=== PATIENT | female | born 1930 | race Caucasian/White ===

== ENCOUNTER 2019-04-21 16:03 | Inpatient (IN) | payer OTHER, MEDICAID ==
[~2019-04-21] VITALS: Ht 160 cm; Wt 63.0 kg
[2019-04-21 16:15] VITALS: BP_SYST 136
--- NOTE | 2019-04-21 16:28 | NUR ---
Patient to ER bed 05 to gown for evaluation. Side rails up.
--- NOTE | 2019-04-21 16:35 | NUR ---
[facility] PT was combative towards the staff and is her for medical clearnace to [place]
--- NOTE | 2019-04-21 16:41 | NUR ---
ER at bedside examining patient.
[2019-04-21 17:13] LABS: BASOPHILS # (AUTO) 0.1 K/uL (0.0-0.2); BASOPHILS % (AUTO) 0.4 % (0.0-2.0); EOSINOPHILS % (AUTO) 0.1 % (0.0-4.0); HEMATOCRIT 49.9 % (36-48); HEMOGLOBIN 16.8 g/dL (12.0-16.0); LYMPHOCYTES # (AUTO) 1.9 K/uL (1.0-5.5); LYMPHOCYTES % (AUTO) 12.9 % (20.5-51.5); MEAN CORPUSCULAR HEMOGLOBIN 30 pg (27-31); MEAN CORPUSCULAR HGB CONC 34 % (32-36); MEAN CORPUSCULAR VOLUME 89 fL (79.0-98.0); MONOCYTES % (AUTO) 6.9 % (1.7-9.3); NEUTROPHILS # (AUTO) 11.8 K/uL (1.8-7.7); NEUTROPHILS % (AUTO) 79.7 % (40.0-70.0); PLATELET COUNT (AUTO) 253 K/uL (130-430); RED BLOOD CELL COUNT(AUTO) 5.58 MIL/uL (4.2-6.2); RED CELL DISTRIBUTION WIDTH 14.9 % (9.0-15.0); WHITE BLOOD COUNT (AUTO) 14.8 K/uL (4.8-10.8)
[2019-04-21 17:28] LABS: ANION GAP 12 (5-15); CALCIUM 9.6 mg/dL (8.4-11.0); CHLORIDE 107 mmol/L (98-107); CREATININE 1.07 mg/dL (0.55-1.30); GLUCOSE 103 mg/dL (70-99); POTASSIUM 4.2 mmol/L (3.5-5.1); SODIUM SERUM 143 mmol/L (136-145); UREA NITROGEN, BLOOD 14 mg/dL (8-21)
[2019-04-21 17:34] LABS: INR 1.1 (0.8-1.2); PROTHROMBIN TIME 10.9 SECS (9.5-12.5)
[2019-04-21 17:39] LABS: ALANINE AMINOTRANSFERASE 20 U/L (12-78); ALBUMIN 3.8 g/dL (3.4-4.8); ASPARTATE AMINOTRANSFERASE 28 U/L (10-37); FREE T4 (FREE THYROXINE) 0.9 ng/dl (0.8-1.5); TOTAL BILIRUBIN 0.5 mg/dL (0.0-1.0)
[2019-04-21 17:40] LABS: ALCOHOL, BLOOD < 3 mg/dL (<10)
--- NOTE | 2019-04-21 17:50 | NUR ---
pt will be admitted to the unit for troponin of 0.059
[2019-04-21] MEDS ORDERED: ASPIRIN 81 MG TAB.CHEW PO ONE (18:15)
[2019-04-21] MEDS ORDERED: PIPERACILLIN/TAZO 3.375 GM in NS 50 ML IV ONE (18:15)
[2019-04-21 18:16] LABS: BILIRUBIN,URINE NEGATIVE (NEGATIVE); CLARITY/URINE CLOUDY (CLEAR); COLOR,URINE YELLOW (YELLOW); GLUCOSE,URINE NEGATIVE (NEGATIVE); KETONES,URINE 1+ (NEGATIVE); LEUKOCYTE ESTERASE ,URINE 3+ (NEGATIVE); NITRITE, URINE POSITIVE (NEGATIVE); PROTEIN URINE TRACE (NEGATIVE); UROBILINOGEN,URINE 0.2 (0.2-1.0)
[2019-04-21 18:20] LABS: BLOOD, URINE TRACE (NEGATIVE)
[2019-04-21 18:27] LABS: BACTERIA,URINE MANY /HPF (None Seen); MUCUS,URINE None Seen /LPF (None Seen); WBC,URINE 80-100 /HPF (0-3)
--- NOTE | 2019-04-21 18:30 | NUR ---
# 20 gauge angiocath placed to RFA. Use of asceptic technique. Opsite placed over site. Blood return noted. Blood for lab drawn from site. Flushed with 10 cc of normal saline. No evidence of infiltration noted. Patient tolerated well.
[2019-04-21] MEDS ORDERED: DORZ1DRO5 OP (18:33)
[2019-04-21] MEDS ORDERED: MEMA10TA PO (18:33)
[2019-04-21] MEDS ORDERED: MULT-1089 PO (18:33)
[2019-04-21] MEDS ORDERED: REM15 PO (18:33)
[2019-04-21] MEDS ORDERED: DONE10TA44 PO (18:33)
[2019-04-21] MEDS ORDERED: ACET325T53 PO (18:33)
--- NOTE | 2019-04-21 18:34 | NUR ---
MEMedication reconciliation completed with information provided by [facility]. Any prior medication reconciliation on file was reviewed and corrected.
[2019-04-21 18:37] LABS: BARBITURATE, URINE NEGATIVE (NEG <=200); BENZODIAZEPINE, URINE NEGATIVE (NEG <=150); CANNABINOID, URINE NEGATIVE (NEG <=50); COCAINE, URINE NEGATIVE (NEG <=150); METHAMPHETAMINES SCREEN,URINE NEGATIVE (NEG <=500); OPIATE, URINE NEGATIVE (NEG <=100); PHENCYCLIDINE SCREEN,URINE NEGATIVE (NEG <=25); UR TRICYCLIC ANTIDEPRESSANTS NEGATIVE (NEG <=300); URINE AMPHETAMINE NEGATIVE (NEG <=500); URINE METHADONE NEGATIVE (NEG <=200); URINE OXYCODONE SCREEN NEGATIVE (NEG <=100); URINE PROPOXYPHENE SCREEN NEGATIVE (NEG <=300)
--- NOTE | 2019-04-21 18:54 | NUR ---
Patient will be admitted to [facility]. Admitted to tele unit. Will go to room 132-c. Belongings list completed. Summary report printed. Report will be given at bedside. IV intact and flushing
[2019-04-21 19:02] VITALS: BP_SYST 116
--- NOTE | 2019-04-21 19:02 | NUR ---
Admission Note Received patient from ER with diagnosis of Lactic Acidosis. Initial Plan of Care discussed-patient verbalized understanding. Oriented to room, call light, pain management and safety. Addendum: 04/22/19 at 0302 by Ziggy Grissom RN Vitals stable, no signs of acute respiratory distress observed.
[2019-04-21 20:00] VITALS: BP_SYST 116
[2019-04-21] MEDS ORDERED: ONDANSETRON HCL 4 MG/2 ML VIAL IVP PRN (21:00)
[2019-04-21] MEDS ORDERED: HYDROcodone/ACETAMIN 5-325 MG TAB (NORCO/ VICODIN) PO PRN (21:00)
[2019-04-21] MEDS ORDERED: HYDROcodone/ACETAMIN 10-325 MG TAB PO PRN (21:00)
[2019-04-21] MEDS: DORZOLAMIDE HCL/TIMOLOL MAL. 10 ML EYE DROPS (COSOPT) OP SCH (21:00)
[2019-04-21] MEDS ORDERED: ACETAMINOPHEN 325 MG TABLET PO PRN (21:00)
[2019-04-21] MEDS ORDERED: PIPERACILLIN/TAZOBACTAM 2.25 GM VIAL IV ONE ×2 (21:55→23:16)
[2019-04-21] MEDS ORDERED: NORMAL SALINE 5 ML DISP.SYRIN IVF SCH (22:00)
--- NOTE | 2019-04-21 22:15 | NUR ---
Patient provided PO medications, patient tolerated well. Patient continues to mumble. No signs of acute respiratory distress at this time. Call light within reach, bed alarm on, and bed at lowest position.
[2019-04-21] MEDS: DONEPEZIL HCL 5 MG TABLET (ARICEPT) PO SCH (22:39)
[2019-04-21] MEDS: MIRTAZAPINE 15 MG TABLET PO SCH (22:40)
[2019-04-21] MEDS: MEMANTINE HCL 5 MG TABLET PO SCH (22:40)
[2019-04-21] MEDS: NORMAL SALINE 5 ML DISP.SYRIN IVF SCH (23:05)
--- NOTE | 2019-04-22 | NUR ---
PAGED PAGED DOCTOR Quan CHRISTIANSEN
--- NOTE | 2019-04-22 00:12 | NUR ---
Patient is agitated, combative when trying to get blood sample. No signs of acute respiratory distress. Safety precautions in place. Will continue to monitor.
--- NOTE | 2019-04-22 00:17 | NUR ---
2 PAGED PAGED DOCTOR Vaibhav CHRISTIANSEN
--- NOTE | 2019-04-22 00:24 | NUR ---
SPOKE TO DR. CHRISTIANSEN, new orders received for Seroquel.
[2019-04-22] MEDS ORDERED: QUEtiapine FUMARATE 25 MG TABLET PO SCH (00:30)
--- NOTE | 2019-04-22 00:30 | NUR ---
Patient is no longer combative, not agitated, resting. No signs of acute respiratory distress. Will continue to monitor.
--- NOTE | 2019-04-22 00:47 | NUR ---
CONSULTATION PAGED/CALLED Reason for Consultation: ELEVATED TROP Person Who was Notified: KERA Consulting Physician: Sacha CHRISTIANSEN Lighting Fixtures Decorator Specialty: Ordering Physician: Quan CHRISTIANSEN
--- NOTE | 2019-04-22 00:48 | NUR ---
CONSULTATION PAGED/CALLED Reason for Consultation: LEUKOVYTOSIS Person Who was Notified: DIPESH Consulting Physician: MIHAI Farm Mortgage Agent Specialty: ID Ordering Physician: Quan CHRISTIANSEN
[2019-04-22] MEDS ORDERED: QUEtiapine FUMARATE 25 MG TABLET PO PRN ×2 (02:00→08:45)
--- NOTE | 2019-04-22 02:41 | NUR ---
Patient is asleep, eyes closed. No signs of respiratory distress observed. Safety precautions in place. Will continue to monitor.
--- NOTE | 2019-04-22 04:12 | NUR ---
Perineal care provided. No signs of acute respiratory distress. Patient is resting but continues to mumble in Bulgarian. Patient states that she has 0/10 pain at this time. Safety precautions in place. Will continue to monitor.
--- NOTE | 2019-04-22 04:15 | NUR ---
Perineal care provided, patient pinches and kicks even with patient orientation and thorough explanations. Patient also tries to hit with head. Restraints in place. Patient now clean and linens changed. Patient offered liquids like ensure or water, and patient refuses. IVF running, no signs of inflammation or infiltration at IV site. SCDs in place. Safety precautions in place. Will continue to monitor. Addendum: 04/22/19 at 0505 by Ziggy Grissom RN WRONG PATIENT
[2019-04-22 04:29] VITALS: BP_SYST 124
[2019-04-22] MEDS: PIPERACILLIN/TAZO 2.25G/DEX-IS 50 ML IV SCH ×5 (05:53→23:25)
[2019-04-22] MEDS: NORMAL SALINE 5 ML DISP.SYRIN IVF SCH ×3 (06:00→21:41)
--- NOTE | 2019-04-22 07:30 | NUR ---
CLOSING NOTES Patient is agitated after attempting blood draw. IV site patent. Safety precautions in place. Will endorse care to oncoming shift.
[2019-04-22 07:49] VITALS: BP_SYST 140
--- NOTE | 2019-04-22 08:00 | NUR ---
Note Pt very combative (kicking,scratching,biting at this time) 2 persons tired to assist in keeping pt's hands and legs down, not successful at this time. 2D-audio video tech at bedside - pt refused at this time. Pt has sitter in room at this time. Call light within reach. Bed alarm on and bed in low position at this time. IV in right forearm intact and patent. Tele unit intact and attached.
[2019-04-22] MEDS: MEMANTINE HCL 5 MG TABLET PO SCH ×2 (09:00→21:34)
[2019-04-22] MEDS: MULTIVITAMINS TAB 1 TABLET PO SCH (09:00)
--- NOTE | 2019-04-22 09:00 | NUR ---
Note Pt refuses breakfast and any PO medications at this time. MD to be notified.
--- NOTE | 2019-04-22 10:08 | NUR ---
ATTENDING MD DR Vaibhav CHRISTIANSEN WAS PAGED, RE: ECHO TEST WAS REFUSED, MEDS AND LABS. SPOKE TO GRICELDA.
--- NOTE | 2019-04-22 10:14 | NUR ---
Nutrition Update Elmer Scale 17 noted. Pt admitted for elevated troponin, lactic acidosis. Diet: 2 gm Na BMI: 24.6 kg/m2 RD to follow per nutrition care standards.
[2019-04-22] MEDS: LORazepam 2 MG/ML VIAL IVP PRN ×2 (10:23→14:50)
--- NOTE | 2019-04-22 10:25 | NUR ---
Note Dr Pete Kirkpatrick was paged and called back. Md notified that pt was refusing medications/labs to be drawn and 2D-echo or to eat any breakfast at this time. MD stated given pt Ativan 1mg IVP and try labs and 2D-echo again. Pt given Ativan 1mg IVP now.
--- NOTE | 2019-04-22 10:50 | NUR ---
Note 2D-vp information technology at bedside trying to do test at this time. Pt's urmila came to check on pt at this time as well, stayed a few minutes and then left the room to go home. Addendum: 04/22/19 at 1152 by Nila Gramajo RN Velasquez [phone] (urmila)
--- NOTE | 2019-04-22 11:40 | NUR ---
Note Pt given hygiene care for incontinence and labs were drawn as well at this time.
[2019-04-22 11:45] LABS: BASOPHILS # (AUTO) 0.1 K/uL (0.0-0.2); BASOPHILS % (AUTO) 0.5 % (0.0-2.0); EOSINOPHILS # (AUTO) 0.1 K/uL (0.0-0.4); HEMATOCRIT 48.5 % (36-48); HEMOGLOBIN 16.2 g/dL (12.0-16.0); LYMPHOCYTES # (AUTO) 2.2 K/uL (1.0-5.5); LYMPHOCYTES % (AUTO) 16.6 % (20.5-51.5); MEAN CORPUSCULAR HEMOGLOBIN 30 pg (27-31); MEAN CORPUSCULAR HGB CONC 33 % (32-36); MEAN CORPUSCULAR VOLUME 90 fL (79.0-98.0); MONOCYTES # (AUTO) 0.9 K/uL (0.0-1.0); NEUTROPHILS % (AUTO) 74.9 % (40.0-70.0); PLATELET COUNT (AUTO) 257 K/uL (130-430); RED BLOOD CELL COUNT(AUTO) 5.41 MIL/uL (4.2-6.2); WHITE BLOOD COUNT (AUTO) 13.3 K/uL (4.8-10.8)
[2019-04-22 12:00] VITALS: BP_SYST 92
[2019-04-22 12:05] LABS: ALANINE AMINOTRANSFERASE 16 U/L (12-78); ALBUMIN 3.4 g/dL (3.4-4.8); ANION GAP 10 (5-15); ASPARTATE AMINOTRANSFERASE 29 U/L (10-37); CALCIUM 8.9 mg/dL (8.4-11.0); CHLORIDE 110 mmol/L (98-107); CREATININE 1.05 mg/dL (0.55-1.30); GLUCOSE 83 mg/dL (70-99); PHOSPHORUS 3.3 mg/dL (2.7-4.5); POTASSIUM 4.2 mmol/L (3.5-5.1); SODIUM SERUM 145 mmol/L (136-145); TOTAL BILIRUBIN 0.7 mg/dL (0.0-1.0); UREA NITROGEN, BLOOD 15 mg/dL (8-21)
--- NOTE | 2019-04-22 15:00 | NUR ---
Note US renal tech at bedside, pt was resisting test. Ativan 1mg IVP given to relax pt and so US renal can be done at this time. Pt asleep once again. Tele unit attached and intact all shift.
--- NOTE | 2019-04-22 15:50 | NUR ---
Note Dr Quan Kirkpatrick at bedside assessing pt at this time. No needs noted. Call light within reach.
--- NOTE | 2019-04-22 16:00 | NUR ---
Note Order for dc tele unit and pt now Med/Surg. Tele unit was dc'd and returned to laboratory monitor.
--- NOTE | 2019-04-22 17:06 | NUR ---
CONFIRMED WITH [facility] WILL CALL FOR A 1830 MACHINIST OUTSIDE GOING TO [facility]. SPOKE TO SHEILA. Addendum: 04/22/19 at 1726 by Mitra Londono LA/ ERROR -- WRONG PT, MEANT FOR 126 B
[2019-04-22 17:18] VITALS: BP_SYST 101
--- NOTE | 2019-04-22 17:23 | NUR ---
Note Pt resting in bed and no needs noted at this time. US renal was completed at this time. IVPB antibiotic running at this time through right forearm IV site.
--- NOTE | 2019-04-22 18:20 | NUR ---
Note Pt asleep, refuses to wake up and eat any dinner. Pt gets very combative and starts hitting staff. Pt now fell back to sleep after hygiene care was given for urine incontinence. IV intact in right arm with IVF's at TKO to keep IV open. No SOB/resp distress or pain/discomfort noted all shift. Sitter has been in the room all shift for needs and care.
--- NOTE | 2019-04-22 19:28 | NUR ---
OPENING NOTES Received pt and endorsement from day shift nurse. Pt is resting in bed with both eyes closed, with visible chest rise and fall with non-labored breathing noted. Pt on saline lock on right forearm G0. No moaning or grimacing noted. No signs of acute distress or SOB noted. Safety precautions in place with 3 side rails up, wheels locked, bed alarm on and in lowest level. Call light with pt. Will continue to monitor.
[2019-04-22 21:28] VITALS: BP_SYST 115
[2019-04-22] MEDS: MIRTAZAPINE 15 MG TABLET PO SCH (21:34)
[2019-04-22] MEDS: DONEPEZIL HCL 5 MG TABLET (ARICEPT) PO SCH (21:34)
[2019-04-22] MEDS: DORZOLAMIDE HCL/TIMOLOL MAL. 10 ML EYE DROPS (COSOPT) OP SCH (21:35)
--- NOTE | 2019-04-22 21:35 | NUR ---
MED PASS All oral due meds given with apple sauce and pt tolerated well. Pt able to eat only a few spoons of apple sauce and about 50ml of juice then she refused despite encouraging her to eat more. No complains of pain and no signs of acute distress noted. Safety precautions in place and call light with pt. Will continue to monitor.
--- NOTE | 2019-04-22 23:20 | NUR ---
RN NOTES Pt is resting in bed with both eyes closed, with visible chest rise and fall with non-labored breathing noted. No signs of acute distress noted. Will continue to monitor.
[2019-04-23 02:00] VITALS: BP_SYST 118
--- NOTE | 2019-04-23 02:10 | NUR ---
RN NOTES Pt is resting in bed with both eyes closed, with visible chest rise and fall with non-labored breathing noted. Pt is easily arousable but gets agitated easily. No needs at this time. No signs of acute distress noted. Will continue to monitor.
--- NOTE | 2019-04-23 04:07 | NUR ---
RN NOTES Pt is resting in bed with both eyes closed, with visible chest rise and fall with non-labored breathing noted. No signs of acute distress or SOB noted. Safety precautions in place and call light with pt. Will continue to monitor.
[2019-04-23] MEDS: PIPERACILLIN/TAZO 2.25G/DEX-IS 50 ML IV SCH ×3 (05:38→16:51)
[2019-04-23] MEDS: NORMAL SALINE 5 ML DISP.SYRIN IVF SCH ×3 (05:40→22:03)
[2019-04-23 06:37] LABS: BASOPHILS # (AUTO) 0.1 K/uL (0.0-0.2); BASOPHILS % (AUTO) 0.4 % (0.0-2.0); EOSINOPHILS # (AUTO) 0.4 K/uL (0.0-0.4); EOSINOPHILS % (AUTO) 3.1 % (0.0-4.0); HEMATOCRIT 45.6 % (36-48); HEMOGLOBIN 15.6 g/dL (12.0-16.0); LYMPHOCYTES # (AUTO) 3.3 K/uL (1.0-5.5); LYMPHOCYTES % (AUTO) 25.8 % (20.5-51.5); MEAN CORPUSCULAR HEMOGLOBIN 31 pg (27-31); MEAN CORPUSCULAR HGB CONC 34 % (32-36); MEAN CORPUSCULAR VOLUME 90 fL (79.0-98.0); MONOCYTES % (AUTO) 8.2 % (1.7-9.3); NEUTROPHILS # (AUTO) 7.9 K/uL (1.8-7.7); NEUTROPHILS % (AUTO) 62.5 % (40.0-70.0); PLATELET COUNT (AUTO) 241 K/uL (130-430); RED BLOOD CELL COUNT(AUTO) 5.06 MIL/uL (4.2-6.2); WHITE BLOOD COUNT (AUTO) 12.7 K/uL (4.8-10.8)
[2019-04-23 06:53] LABS: ALANINE AMINOTRANSFERASE 18 U/L (12-78); ALBUMIN 3.3 g/dL (3.4-4.8); ANION GAP 6 (5-15); ASPARTATE AMINOTRANSFERASE 23 U/L (10-37); C-REACTIVE PROTEIN QUANT 2.8 mg/dL (0-0.5); CHLORIDE 109 mmol/L (98-107); CREATININE 1.23 mg/dL (0.55-1.30); GLUCOSE 88 mg/dL (70-99); SODIUM SERUM 142 mmol/L (136-145); TOTAL BILIRUBIN 0.7 mg/dL (0.0-1.0); UREA NITROGEN, BLOOD 19 mg/dL (8-21)
--- NOTE | 2019-04-23 06:55 | NUR ---
CLOSING NOTES Pt is resting in bed with both eyes closed, with visible chest rise and fall with non-labored breathing noted. No signs of acute distress or SOB noted. All needs attended throughout the shift. Safety precautions maintained with 3 side rails up, wheels locked, bed alarm on and in lowest level. Call light with pt. Will endorse to day shift nurse.
[2019-04-23 07:31] LABS: ERYTHROCYTE SEDIMENTATION RATE 7 MM/HR (0-20)
[2019-04-23 08:00] VITALS: BP_SYST 102
--- NOTE | 2019-04-23 08:00 | NUR ---
Pt is awake, easily agitated. Pt on saline lock on right forearm G22. No complains of pain or discomfort nor acute distress or SOB noted. Safety precautions in place with 3 side rails up. Call light in place, bed locked at the lowest position, will continue to monitor.
[2019-04-23 08:13] LABS: CALCIUM 9.1 mg/dL (8.4-11.0)
[2019-04-23] MEDS: MULTIVITAMINS TAB 1 TABLET PO SCH (08:59)
[2019-04-23] MEDS: MEMANTINE HCL 5 MG TABLET PO SCH ×3 (08:59→21:55)
--- NOTE | 2019-04-23 10:09 | NUR ---
Patient is turned and repositioned for comfort.
[2019-04-23 12:00] VITALS: BP_SYST 125
--- NOTE | 2019-04-23 12:36 | NUR ---
PATIENT REFUSED FOOD AND DRINK, AND ONLY HAD SOUP FOR LUNCH. DR. CHRISTIANSEN IS NOTIFIED.
--- NOTE | 2019-04-23 13:15 | NUR ---
PATIENT'S IV SITE IS LEAKING. IV RESTARTED ON RIGHT FA, #20. SL.
[2019-04-23] MEDS: D5/0.45 NS 1,000 ML IV SCH (14:28)
--- NOTE | 2019-04-23 14:57 | NUR ---
DC PLANNING: KELIN SPOKE WITH DR. Vaibhav CHRISTIANSEN REGARDING DC PLANNING ORDER. INFORMED MD PATIENT ALREADY CAME FROM A NURSING FACILITY ([facility]). STATED DC PLANNING BACK TO SNF WHERE PATIENT CAME FROM.
--- NOTE | 2019-04-23 15:59 | NUR ---
Dietitian Recommendations 1. Recommend change to [facility] diet 2. Glucerna TID with meals. This will provide 220kcal and 10gPro per serving. 3. [place] food preferences 4. Encourage PO intake as tolerated 5. Provide assistance with meals Please see Nutrition Assessment for details. LT, RD
--- NOTE | 2019-04-23 16:00 | NUR ---
PATIENT HAD AN EPISODE OF URINARY INCONTINENCE. SHE IS TURNED AND REPOSITIONED FOR COMFORT.
--- NOTE | 2019-04-23 16:25 | NUR ---
DC PLANNING: CM FAX[facility] CLINICAL PACKET [facility] . CM/LYNNP TO FOLLOW UP
[2019-04-23 16:59] VITALS: BP_SYST 120
--- NOTE | 2019-04-23 18:27 | NUR ---
PATIENT REFUSES DINNER AND BECOMES AGGRESSIVE DESPITE ENCOURAGEMENT.
[2019-04-23 19:00] VITALS: BP_SYST 117
[2019-04-23 20:00] VITALS: BP_SYST 117
[2019-04-23] MEDS: DONEPEZIL HCL 5 MG TABLET (ARICEPT) PO SCH ×2 (21:00→21:55)
[2019-04-23] MEDS: MIRTAZAPINE 15 MG TABLET PO SCH ×2 (21:00→21:55)
[2019-04-23] MEDS: DORZOLAMIDE HCL/TIMOLOL MAL. 10 ML EYE DROPS (COSOPT) OP SCH ×2 (21:00→22:24)
--- NOTE | 2019-04-23 22:08 | NUR ---
PATIENT REFUSED DINNER AND REFUSED PRESENT MEDICATIONS. WITH THE SAME IVF ON.
[2019-04-24] MEDS: LORazepam 2 MG/ML VIAL IVP PRN (00:27)
--- NOTE | 2019-04-24 00:29 | NUR ---
PATIENT IS AGITATED AND HOSTILE. KICKS AND HITS, REFUSED MEDICATIONS ,LORAZEAPM 1 MG IVP GIVEN FOR RESTLESSNESS,
[2019-04-24] MEDS: D5/0.45 NS 1,000 ML IV SCH ×2 (01:11→11:47)
[2019-04-24] MEDS: PIPERACILLIN/TAZO 2.25G/DEX-IS 50 ML IV SCH ×3 (01:12→11:48)
--- NOTE | 2019-04-24 01:15 | NUR ---
CURRENTLY ASLEEP .WITH THE SAME IVBF ON
[2019-04-24] MEDS: NORMAL SALINE 5 ML DISP.SYRIN IVF SCH ×2 (06:04→14:00)
[2019-04-24 06:38] LABS: BASOPHILS % (AUTO) 0.3 % (0.0-2.0); EOSINOPHILS # (AUTO) 0.4 K/uL (0.0-0.4); HEMATOCRIT 41.3 % (36-48); HEMOGLOBIN 14.2 g/dL (12.0-16.0); LYMPHOCYTES # (AUTO) 2.8 K/uL (1.0-5.5); LYMPHOCYTES % (AUTO) 26.1 % (20.5-51.5); MEAN CORPUSCULAR HEMOGLOBIN 31 pg (27-31); MEAN CORPUSCULAR HGB CONC 34 % (32-36); MEAN CORPUSCULAR VOLUME 89 fL (79.0-98.0); NEUTROPHILS # (AUTO) 6.4 K/uL (1.8-7.7); NEUTROPHILS % (AUTO) 60.6 % (40.0-70.0); PLATELET COUNT (AUTO) 219 K/uL (130-430); RED BLOOD CELL COUNT(AUTO) 4.63 MIL/uL (4.2-6.2); RED CELL DISTRIBUTION WIDTH 14.7 % (9.0-15.0); WHITE BLOOD COUNT (AUTO) 10.6 K/uL (4.8-10.8)
[2019-04-24 07:00] LABS: C-REACTIVE PROTEIN QUANT 2.2 mg/dL (0-0.5)
[2019-04-24 07:30] VITALS: BP_SYST 101
--- NOTE | 2019-04-24 07:45 | NUR ---
opening notes, received pt in bed, pt is aaox1, withdrawn, no s/s of pain, no sob, no resp distress. sitter at bedside for safety, per report was combative, pt is calm and cooperative this time but does not want to be disturbed. will cont to monitor.
[2019-04-24 07:47] LABS: ANION GAP 7 (5-15); CALCIUM 8.3 mg/dL (8.4-11.0); CHLORIDE 110 mmol/L (98-107); GLUCOSE 105 mg/dL (70-99); POTASSIUM 3.5 mmol/L (3.5-5.1); SODIUM SERUM 142 mmol/L (136-145); UREA NITROGEN, BLOOD 13 mg/dL (8-21)
[2019-04-24 07:48] LABS: CREATININE 1.02 mg/dL (0.55-1.30)
[2019-04-24 08:13] LABS: ERYTHROCYTE SEDIMENTATION RATE 6 MM/HR (0-20)
[2019-04-24] MEDS: MULTIVITAMINS TAB 1 TABLET PO SCH (10:02)
[2019-04-24] MEDS: MEMANTINE HCL 5 MG TABLET PO SCH (10:02)
--- NOTE | 2019-04-24 10:50 | NUR ---
pt's son at bedside, updated with pt status and condition and plan of care. pt is awake, eyes open.
[2019-04-24 12:35] VITALS: BP_SYST 102
[2019-04-24] MEDS ORDERED: LEVO750T45 PO (15:13)
[2019-04-24] MEDS ORDERED: LEVOFLOXACIN 250 MG/D5W 50 ML IV SCH (16:00)
[2019-04-24 16:16] VITALS: BP_SYST 111
--- NOTE | 2019-04-24 17:30 | NUR ---
Discharge Planning. [facility] advised to re-fax packet to [phone]. Said pt. was previously [facility] 315[facility]A [facility]. Per Lula, [phone]
--- NOTE | 2019-04-24 18:23 | NUR ---
closing notes, pt has been stable the whole shift, sleepy was awakens to touch, ate breakfast and lunch with assist , does not want to eat dinner. iv access remained intact and patent. iv fluids infusing well. sitter at bedside. no c/o pain, not incidence of combativeness this shift. will endorse to night nurse.
--- NOTE | 2019-04-24 18:43 | NUR ---
called pt's family # [phone], nobody answered, left message, [facility], as they have not called us back for room number, [facility] was informed that they still has to inform their hr administrator before they can accept the pt, though there is room available.
--- NOTE | 2019-04-24 19:02 | NUR ---
[facility] WAS CALLED TO CONFIRM ACCEPTANCE OF THE PT. SPOKE TO FINN AND WAS GIVEN RM 315 A. [facility] WAS CALLED AND LEARNING AND DEVELOPMENT ADMINISTRATOR TIME IS 1934. SPOKE TO DON.
[2019-04-24 19:09] VITALS: BP_SYST 111
--- NOTE | 2019-04-24 20:07 | NUR ---
INFORMED RN FINN OF [facility] ABOUT THE SWELLING ON PT'S RIGHT ARE DUE TO IV INFILTRATION.
== END 2019-04-24 19:45 | DRG 871 ==
LOC: SED 16:03 → STU 18:26 → SMU 04-22 16:00
PROVIDERS: ADMIT Preventive Medicine Preventive Medicine/Occupational Environmental Medicine; ATTEND Preventive Medicine Preventive Medicine/Occupational Environmental Medicine
DX: A41.9 Sepsis, unspecified organism (principal); I21.A1 Myocardial infarction type 2; E87.2 Acidosis; N12 Tubulo-interstitial nephritis, not specified as acute or chronic; K56.7 Ileus, unspecified; J45.909 Unspecified asthma, uncomplicated; J44.9 Chronic obstructive pulmonary disease, unspecified; I10 Essential (primary) hypertension; E03.9 Hypothyroidism, unspecified; F03.90 Unspecified dementia, unspecified severity, without behavioral disturbance, psychotic disturbance, mood disturbance, and anxiety; E11.65 Type 2 diabetes mellitus with hyperglycemia; B96.4 Proteus (mirabilis) (morganii) as the cause of diseases classified elsewhere; E83.52 Hypercalcemia; B96.89 Other specified bacterial agents as the cause of diseases classified elsewhere; E88.09 Other disorders of plasma-protein metabolism, not elsewhere classified; Z79.899 Other long term (current) drug therapy
CPT/HCPCS: 36415; 71045; 74018; 76770; 80048; 80053; 80307; 81000-TC; 82140-TC; 83605; 83735-TC; 83880; 84100-TC; 84439; 84484; 85025; 85610-TC; 85651-TC; 86140; 87040-TC; 87081; 87086; 87186-TC; 93005; 93306; 99285; G0378; G0482; J1956; J2060; J2543; J7060